=== PATIENT | male | born 1960 | race Caucasian/White ===

== ENCOUNTER 2019-05-12 11:04 | Observation (INO) | payer OTHER ==
[~2019-05-12] VITALS: Ht 182.9 cm; Wt 88.5 kg
[~2019-05-12 11:04] MED LIST: AMBIEN10 MG PO; ASPIRIN EC81 MG PO; ATENOLOL25 MG PO; IBUPROFEN600 MG PO; LISINOPRIL10 MG PO; METHOCARBAMOL500 MG PO; MIGRELIEF CAPL1 EACH PO; PERCOCET 10-321 EACH PO
--- OUTSIDE RECORDS SUMMARY | 2019-05-12 11:06 | XMS ---
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 Krista has no Care Guidelines for this patient. Vic VISIT COUNT (12 MO.) 1 [address] [facility] TOTAL 1 NOTE: Visits indicate total known visits. ED/UCC VISIT TRACKING (12 MO.) 05/12/2019 11:04 CT [facility] OR TYPE: Emergency COMPLAINT: - ABDOMINAL PAIN INPATIENT VISIT TRACKING (12 MO.) No inpatient visits to display in this time frame [email or web address]
[2019-05-12] MEDS ORDERED: ASPIRIN325 MG PO (11:21)
[2019-05-12] MEDS ORDERED: FENOFIBRATE160 MG PO (11:23)
[2019-05-12] MEDS ORDERED: LOSARTAN-HCTZ1 EAC2 PO (12:07)
[2019-05-12] MEDS ORDERED: METOPROLOL TAR100 MG PO (12:09)
--- NOTE | 2019-05-12 15:20 | NUR ---
PATIENT TO SURGERY WITH DIEGO DORAN.
--- NOTE | 2019-05-12 16:40 | NUR ---
05/12/19 Enmanuel Enciso PATIENT ARRIVES WITH ORAL AIRWAY IN PLACE, BUT SPIT IT OUT WITHIN 1 MINUTE OF ARRIVAL. SLEEPY AND MOANIG. 1300 MLS LR IN OR WITH 25MLS EBL.
--- NOTE | 2019-05-12 17:17 | NUR ---
PT TO FLOOR FROM PACU AT 1710, RECIEVED BEDSIDE REPORT FROM MO, RN AND RULA RN. PT ALERT, ORIENTED X 3. HAS 3 SMALL SITES TO ABDOMEN COVERED WITH GAUZE AND TAPE, ALL 3 C/D/I. PT DENIED NAUSEA. RATED PAIN AFTER MOVING FROM STRETCHER TO BED 7/10 TO ABDOMEN. PT ALSO REPORTED HAVING A HEADACHE. REPORTED DRINKING A 32 OUNCE MOUNTAIN DEW DAILY, PROVIDED PT WITH A CAFINATED POP.
--- NOTE | 2019-05-12 17:29 | NUR ---
PT C/O 06/09 ABDOMINAL PAIN, DESCRIBED AN ACHE. GAVE DILAUDID 1 MG IV PRN. PROVIDED PT WITH JELLO, PT DENIED WANTING ANYTHING ELSE CLEAR LIQUIDS AT THIS TIME.
--- NOTE | 2019-05-12 18:32 | NUR ---
PT IN BED, RATES ABDOMINAL PAIN 4/10, STATES THIS IS A TOLERABLE LEVEL OF PAIN. RIGHT UPPER QUADRANT DRESSING HAS SHADOWING NOTED TO DRESSING, DOES UMBILICAL DRESSING. ENCOURAGED PT TO USE URINAL. PT DENIED NEEDS AT THIS TIME. PERSONAL SUPPLIES AND CALL LIGHT IN REACH.
--- NOTE | 2019-05-12 19:10 | NUR ---
PT RATED PAIN 4/10, DENIED NEEDS. PERSONAL SUPPLIES AND CALL LIGHT IN REACH.
--- NOTE | 2019-05-12 19:36 | NUR ---
BEDSIDE REPORT RECEIVED FROM DIEGO JACK. PT AWAKE RESTING IN BED. SPO2 97% ON RA. PT RATES PAIN 4-4.5/10 IN RIGHT UPPER ABD. LAP SITES CDI, SMALL AMT SHADOWING NOTED. IVF INFUSING WNL. CALL LIGHT IN REACH.
--- NOTE | 2019-05-12 20:40 | NUR ---
POST OP VITAL SIGNS COMPLETE, STABLE. ASSESSMENT COMPLETE. PT RATES PAIN 5.75/10 IN RUQ. PRN PO PAIN MEDICATION ADMINISTERED. BOWEL TONES ACTIVE X 4, ABD SOFT, TENDER W PALPATION IN RUQ. IVF INFUSING WNL ORDERED. SCDS ON. CALL LIGHT IN REACH. PT REQUESTING SLEEP MEDICATION, STATES UNABLE TO SLEEP WITHOUT IT. PHONED, MESSAGE LEFT.
--- NOTE | 2019-05-12 21:01 | NUR ---
ROUNDED CHARGE. PATIENT IS RESTING IN BED. PRIMARY RN IS IN THE ROOM. PATIENT DENIES ANY COMMENTS, QUESITONS OR CONCERNS. NO NEEDS NOTED. CALL LIGHT IN REACH.
--- NOTE | 2019-05-12 21:30 | NUR ---
RECEIVED TELEPHONE ORDER PER DR GAXIOLA. VERIFIED TELEPHONE ORDER USING THE REDBACK METHOD.
--- NOTE | 2019-05-12 21:37 | NUR ---
IN PT ROOM FOR MEDICTION ADMINISTRATION, PT REQUESTING SLEEPING MEDICATION A LITTLE LATER. URINAL EMPTIED. IVF INFUSING WNL. CALL LIGHT IN REACH.
--- NOTE | 2019-05-12 22:31 | NUR ---
IN PT ROOM FOR SCHEDULED SLEEP MEDICATION. PT RESTING IN BED, RATES PAIN 5/10, STATES "JUST A LITTLE THROB NOW". CALL LIGHT AND PERSONAL SUPPLIES IN REACH. SCDS ON. IVF INFUSING ORDERED.
--- NOTE | 2019-05-12 23:50 | NUR ---
CHECKED ON PT, APPEARS TO BE SLEEPING. EYES CLOSED. BREATHING NON-LABORED. RR 18. LIGHTS OFF IN ROOM.
--- NOTE | 2019-05-13 02:30 | NUR ---
CHECKED ON PT, RESTING IN BED WITH EYES CLOSED, APPEARS TO BE SLEEPING. BREATHING EQUAL AND NON-LABORED. LIGHTS OFF IN ROOM. IVF INFUSING. SCDS ON.
--- NOTE | 2019-05-13 04:35 | NUR ---
IV PUMP BEEPING, NEW BAG IVF INFUSING WNL. ASSESSMENT COMPLETE. PT RATES PAIN 5/10 IN RLQ, PRN PAIN MEDICATION ADMINISTERED ORDERED. BOWEL TONES ACTIVE X 4. PT REPORTS FLATUS. ABD SOFT. DRESSINGS CDI WITH SHADOWING ON GAUZE. JELLO PROVIDED. PT DENIES NAUSEA. CALL LIGHT IN REACH.
--- NOTE | 2019-05-13 05:59 | NUR ---
PT TOLERATING CLEAR LIQUID DIET, NO NAUSEA. BOWEL TONES ACTIVE X 4, ABD SOFT, TENDER W PALPATION. SHADOWING ON GAUZE AT LAP SITES X 3 UNCHANGED THROUGHOUT SHIFT. SCDS IN PLACE. IVF INFUSING WNL ORDERED. PAIN WELL CONTROLLED W PO NORCO PRN. PT NOT OUT OF BED AT THIS TIME, RESTED IN BED THROUGHOUT SHIFT. SPO2 WNL ON RA.
--- NOTE | 2019-05-13 06:33 | OR ---
[facility] [address], [place] [address] Signed DATE OF OPERATION: 05/12/2019 SURGEON: Edgardo Gaxioal MD PREOPERATIVE DIAGNOSIS: Acute suppurative appendicitis. POSTOPERATIVE DIAGNOSIS: Acute suppurative appendicitis. PROCEDURE PERFORMED: Laparoscopic appendectomy. ESTIMATED BLOOD LOSS: Minimal. INDICATIONS: Bob is a 59-year-old gentleman, who presented with four days of lower abdominal pain. It seemed to localized to the right lower quadrant. He came to emergency room for evaluation. He was tender in the right lower quadrant with an elevated white blood cell count. CT scan confirmed a thickened inflamed appendix with periappendiceal inflammation. I have been asked to see him in the emergency room. He received his IV fluid in his Rocephin and Flagyl. I spoke with Bob and his in detail. We reviewed the above findings. We reviewed the location and function of the appendix. We discussed laparoscopic versus open appendectomy. He understands expected intraop and postop course. There is risk of surgery including, but not limited to bleeding, infection, scarring, change in contour of the skin, damage to bowel, appendiceal stump leak, postoperative intraabdominal abscess, incisional hernias and other unforeseen comorbidities. He had expressed understanding and wished to proceed. DESCRIPTION OF PROCEDURE: Bob was taken into our operating room and placed in a supine position under general endotracheal tube anesthesia. He was already on his preoperative antibiotics along with subcutaneous heparin. SCDs were utilized. A Mendieta catheter was inserted with return of clear yellow urine. He was then prepped and draped in the usual sterile fashion. All trocars were placed in usual positions under direct visualization of camera without difficulty. The appendix was grasped and elevated into the right lower quadrant. The base of the appendix was cleared off and divided from the cecum with the help of a linear stapler. He had just a small arterial bleeding there from the mesoappendix near the base of the cecum. He did not respond to the cautery, so we used our laparoscopic Electronically Signed By: EDGARDO GAXIOLA MD 05/13/19 0633 PATIENT NAME: BOB SPIVEYN OPERATIVE REPORT DATE OF : 56 REPORT #: [id number] PHYSICIAN: EDGARDO GAXIOLA MD PCP: KAREN FAIRBANKS MD REPORT IS CONFIDENTIAL AND NOT TO BE RELEASED WITHOUT AUTHORIZATION [facility] [address], [place] [address] Signed needle drivers and passed 0 silk stitch underneath and tied that down with excellent hemostasis. The mesoappendix was then divided with two vascular loads on the linear stapler. There was a little arterial bleeding on the staple line, so it did respond quite nicely to cautery. The area was irrigated and suctioned out until clear. We washed the area for several minutes and all hemostasis was excellent. After this, the appendix was placed into an EndoCatch bag and taken out through the right subcostal trocar site. We used our laparoscopic suturing device to pass 0 Vicryl suture on either side of the fascia of the subxiphoid trocar site. This was tied down to close this fascia primarily. After this, all the gas was allowed to escape and the remaining trocars were removed. We used interrupted simple and zjijry-um-rylov 0 Vicryl sutures to close the fascia of the supraumbilical trocar site. We then injected local anesthetic into all three trocar sites. Each trocar site was irrigated and suctioned out until clear. The skin and dermis were closed with interrupted 3-0 subcuticular Monocryl sutures. Dry gauze and tape were applied to all incisions. The Mendieta catheter was removed without difficulty. Bob was then awakened from his anesthesia, extubated in the OR, and taken to recovery room in stable condition. Edgardo Gaxiola MD ALB/MODL /[id number] cc: MD Edgardo Shaikh MD Copies: KAREN FAIRBANKS MD, ANDREW L MD ~ Electronically Signed By: EDGARDO GAXIOLA MD 05/13/19 0633 PATIENT NAME: BOB SPIVEY CARLOS OPERATIVE REPORT DATE OF : 56 REPORT #: [id number] PHYSICIAN: EDGARDO GAXIOLA MD PCP: KAREN FAIRBANKS MD REPORT IS CONFIDENTIAL AND NOT TO BE RELEASED WITHOUT AUTHORIZATION
--- NOTE | 2019-05-13 06:33 | CONS ---
[facility] [address] [place], [place] [address] Signed DATE OF CONSULTATION: 05/12/2019 CHIEF COMPLAINT: Right lower quadrant abdominal pain. HISTORY OF PRESENT ILLNESS: Bob is a 59-year-old gentleman, who I know previously having been in the office. He has had four days now of lower abdominal pain. It seems to be worse on the right than on the left. He went to his primary care provider. He thought he might have the flu. There was concern for appendicitis, so he was sent as an outpatient to our radiology department. CT scan confirmed a thickened inflamed appendix. He was asked to go down the emergency room for evaluation. In the emergency room, he is tender in the right lower quadrant with elevated white blood cell count. He has been given IV fluids, some pain control and his Rocephin and Flagyl. I was asked to see him as a general surgeon on-call. PAST MEDICAL HISTORY: Prostate cancer, hypertension, and migraine headaches. PAST SURGICAL HISTORY: Brachytherapy and tonsillectomy. SOCIAL HISTORY: He does not smoke or drink. He is . He is retired from the [employer]. They have no children. He prefers the [facility]. Dr. Karen Toribio is primary care provider. FAMILY HISTORY: Dad of an [place] at age 59. Mom in a motor vehicle crash. REVIEW OF SYSTEMS: He had 10 systems reviewed and really nothing new to add. ALLERGIES: He said marijuana makes him vomit. MEDICATIONS: Ambien, aspirin, fenofibrate, losartan/hydrochlorothiazide, and metoprolol. PHYSICAL EXAMINATION: VITAL SIGNS: Blood pressure 119/77, heart rate 56, respiratory rate 14, temperature is 98.2. He is 99% on room air. He is 6 feet tall at 87 kg. GENERAL: Bob is a 59-year-old gentleman, who is lying supine semi-recumbent in his Electronically Signed By: EDGARDO GAXIOLA MD 05/13/19 0633 PATIENT NAME: BOB SPIVEY CARLOS CONSULTATION DATE OF : 56 REPORT #: [id number] PHYSICIAN: EDGARDO GAXIOLA MD PCP: KAREN TORIBIO MD REPORT IS CONFIDENTIAL AND NOT TO BE RELEASED WITHOUT AUTHORIZATION [facility] [address] [place] [id number] Signed ER bed. His is at the bedside. LUNGS: Clear to auscultation bilaterally. HEART: Regular rate and rhythm. ABDOMEN: Soft and flat, but he is tender in the right lower quadrant. LABORATORY DATA: White blood count 13, neutrophils 71, BUN 19, creatinine 1.36, potassium 3.4. Liver function tests unremarkable. Albumin is 4.2. RADIOGRAPHIC STUDIES: CT scan of abdomen and pelvis is reviewed and he clearly has a very thickened inflamed appendix with periappendiceal inflammation. He looks like he has left inguinal hernia as well. ASSESSMENT AND PLAN: Bob is a 59-year-old gentleman, who presents with acute appendicitis. I have reviewed the above findings with Bob and his . We have discussed laparoscopic versus open appendectomy. We have also reviewed the potential risks including, but not limited to bleeding, infection, scarring, change in contour of the skin, damage to bowel, appendiceal stump leak, postoperative intraabdominal abscess, incisional hernias, and other unforeseen comorbidities. At this point, the OR is full. We are going to have to wait a few hours to have a room. We are going to admit him to one of our medical rooms and we will continue on IV fluids, antibiotics, and pain control. They have expressed understanding and agreed above plan. Edgardo Gaxiola MD ALB/MODL /[id number] cc: MD Edgardo Shaikh MD Copies: KAREN TORIBIO MD Electronically Signed By: EDGARDO GAXIOLA MD 05/13/19 0633 PATIENT NAME: BOB SPIVEY CARLOS CONSULTATION DATE OF : 56 REPORT #: [id number] PHYSICIAN: EDGARDO GAXIOLA MD PCP: KAREN TORIBIO MD REPORT IS CONFIDENTIAL AND NOT TO BE RELEASED WITHOUT AUTHORIZATION [facility] [address] [place], [place] [address] Signed EDGARDO GAXIOLA MD ~ Electronically Signed By: EDGARDO GAXIOLA MD 05/13/19 0633 PATIENT NAME: BOB SPIVEYN CONSULTATION DATE OF : 56 REPORT #: [id number] PHYSICIAN: EDGARDO GAXIOLA MD PCP: KAREN TORIBIO MD REPORT IS CONFIDENTIAL AND NOT TO BE RELEASED WITHOUT AUTHORIZATION
--- NOTE | 2019-05-13 07:05 | NUR ---
REPORT RECEIVED FROM MAY CORTEZ. PT SITTING UP IN BED REPORTS PAIN OF 6/10 TO SURGICAL SITES AND STATES "NORCO DOESN'T REALLY WORK FOR ME, OXYCODONE SEEMS TO WORK BETTER FOR ME" DR GAXIOLA NOTIFIED OF PT'S REPORTED PAIN LEVEL AND THAT PT REQUESTS OXYCODONE INSTEAD OF NORCO. CALL LIGHT AND H2O IN REACH. PT DENIES FURTHER NEEDS/COCNERNS. LAP SITES WELL APPROXIMATED AND CLINICAL STAFF ANESTHESIOLOGIST; PT REPORTS MD REMOVED DSGS THIS MORNING.
--- NOTE | 2019-05-13 07:30 | NUR ---
PATIENT RESTING IN BED. IV WRAPPED. SETS UP BATHROOM FOR SHOWER. CALL LIGHT WITHIN REACH. NO OTHER NEEDS AT THIS TIME
--- NOTE | 2019-05-13 07:57 | EKG ---
[facility] [address] [facility] [place] [address] Signed Sinus bradycardia Nonspecific ST and T wave abnormality Prolonged QT Abnormal ECG No previous ECGs available Confirmed by GONZALO LOO MD ([id number]) on 05/13/2019 7:57:27 AM Electronically Signed By: GONZALO LOO MD 05/13/19 0757 PATIENT NAME: ARJUN SPIVEY Electrocardiogram DATE OF : 56 PHYSICIAN: GONZALO LOO MD REPORT #: [id number] REPORT IS CONFIDENTIAL AND NOT TO BE RELEASED WITHOUT AUTHORIZATION
--- NOTE | 2019-05-13 08:33 | NUR ---
PT RESTING SUPINE IN BED STATES PAIN IS TOLERABLE AT THIS TIME, WATCHING TV. CALL LIGHT AND H20 IN REACH. IV K+ INFUSING - SEE EMAR. NO NEEDS/CONCERNS VOICED.
--- NOTE | 2019-05-13 10:08 | NUR ---
PATIENT RESTING IN BED. IN ROOM. VITAL SIGNS AND I&O DONE. PATIENT COMPLAINS ABOUT PAIN. RN NOTIFIED. CALL LIGHT WITHIN REACH. NO OTHER NEEDS AT THIS TIME
--- NOTE | 2019-05-13 10:30 | NUR ---
PT ASSISTED UP TO RESTROOM, AMBULATES WITH SLOW BUT STEADY GAIT AND DENIES DIZZINESS. PT STATES PAIN IS TOLERABLE. PT BACK TO BED, PT STATES PAIN IS TOLERABLE AND DENIES NAUSEA OR SOB. PT WATCHING TV. CALL LIGHT AND H20 IN REACH.
--- NOTE | 2019-05-13 10:40 | NUR ---
MED REC COMPLETE
--- NOTE | 2019-05-13 10:55 | NUR ---
PT SITTING ON SIDE OF BED ALERT, ORIENTED AND SUPPORTED BY HIS AT . PT STATED HE WAS DOING WELL, HIS THANKED ME FOR COMING BY. EXTENDED A BLESSING. WILL FOLLOW NEEDED
--- NOTE | 2019-05-13 13:03 | NUR ---
PT SITTING UP EATING LUNCH, I/OS DOCUMENTED ON WHITE BOARD. SCD'S IN PLACE. PT REPORTS INCREASED PAIN TO ABDOMEN, PRN PO OPIOD ADMINISTERED PER PT REQUEST. CALL LIGHT AND H2O IN REACH. PT AGREES TO USE CALL LIGHT ONCE HE FEELS READY TO AMBULATE.
--- NOTE | 2019-05-13 13:33 | NUR ---
PATIENT SITTING UP IN BED. AND VISITOR IN ROOM. VITAL SIGNS AND I&O DONE. CALL LIGHT WITHIN REACH. NO OTHER NEEDS AT THIS TIME
--- NOTE | 2019-05-13 14:35 | NUR ---
SPOKE WITH STAFF AND THERE ARE NO KNOWN CM NEEDS AT THIS TIME. PLAN IS TO DISCHARGE WITH FAMILY. THEY WILL PLACE CONSULT IF NEEDS ARISE.
--- NOTE | 2019-05-13 16:08 | NUR ---
PT REPORTS INCREASED PAIN WITH MOVEMENT. PT STATES "I FEEL LIKE I JUST HAVEN'T HAD A GOOD HANDLE ON THIS PAIN SINCE I HAD THE SURGERY". PT EDUCATED ON USIGN CALL LIGHT ANY TIME HE FEELS HIS PAIN IS RAISING SO THAT WE CAN ENSURE THAT WE KEEP IT AT A LEVEL THAT IS TOLERABLE FOR HIM. PT VERBALIZED UNDERSTANDING. CALL LIGHT AND H20 IN REACH[address] GAXIOLA NOTIFIED OF PT'S REPORTED INCREASE IN PAIN AND NEW ORDER RECEIVED FOR 10/325MG PERCOCET 1-2 TABS PRN PAIN Q4HRS.
--- NOTE | 2019-05-13 16:23 | NUR ---
PT RESTING SUPINE IN BED, KEN RN ATTEMPTING NEW IV START PT'S IV TO RFA WAS FOUND TO BE LEAKING. NO REDNESS OR SWELLING NOTED TO IV SITE. CALL LIGHT AND H20 IN REACH. FAMILY AT BEDSIDE. NO NEEDS/CONCERNS VOICED AT THIS TIME.
--- NOTE | 2019-05-13 19:20 | NUR ---
SHIFT REPORT RECEIVED FROM DAYSHIFT DIEGO GAMBOA AT BEDSIDE. PT AWAKE AND WATCHING TELEVISION. PT APPEARS COMFORTABLE, RATES PAIN "TOLERABLE". DENIES NEEDS AT THIS TIME, SCD'S IN PLACE. CALL LIGHT IN REACH.
--- NOTE | 2019-05-13 21:00 | NUR ---
VS COLLECTED. PT'S HR IN MID-UPPER 40'S FROM VS CHART. APICAL HR TAKEN BY THIS RN, RESULT OF 48. PT AYMPTOMATIC, DENIES CHEST PAIN OR DIZZINESS. BP STABLE, RESULT OF 148/85, MAP 98. DR GAXIOLA MADE AWARE, VERBAL ORDER READ BACK TO HOLD SCHEDULED METOPROLOL.
--- NOTE | 2019-05-13 22:30 | NUR ---
ASSESSMENT COMPLETE, SCHEDULED MEDICATION ADMINISTERED AT THIS TIME PER PT REQUEST. SEE EMAR FOR MED ADMINISTRATION, SCHEDULED METOPROLOL HELD PER MD. SEE PREVIOUS NOTE FOR DETAILS. PT A/OX4, DENIES PAIN. BOWEL TONES ACTIVE, DENIES NAUSEA. LAP SITES X3 NOTED, OPEN TO AIR AND INTACT. NO DRAINAGE OR SHADOWING NOTED. PT DENIES ADDITIONAL NEEDS, CALL LIGHT IN REACH.
--- NOTE | 2019-05-14 00:36 | NUR ---
PT RESTING IN BED, EYES CLOSED, RR WNL. NO DISTRESS NOTED, CALL LIGHT IN REACH.
--- NOTE | 2019-05-14 03:23 | NUR ---
ASSESSMENT COMPLETE, NO NEW CONCERNS. PT RECENTLY UP FROM BATHROOM TO VOID, 550 MLS YELLOW OUTPUT NOTED. NO NEW CONCERNS AT THIS TIME, LUNG SOUNDS CLEAR, PT DENIES SOB OR DYSPNEA. LAP SITES X3 OPEN TO AIR, WELL APPROXIMATED AND DRY. NO DRAINAGE OR SHADOWING NOTED. BOWEL TONES ACTIVE, PT DENIES NAUSEA. NO FURTHER NEEDS AT THIS TIME, CALL LIGHT IN REACH.
--- NOTE | 2019-05-14 05:14 | NUR ---
PT HAD UNEVENTFUL NIGHT, SLEPT FOR MOST OF SHIFT. VSS, 2100 SCHEDULED METOPROLOL HELD FOR 48HR, MD AWARE. PT ASYMPTOMATIC. AMBULATES INDEPENDENTLY, USES CALL LIGHT WHEN NEEDED. FULL LIQUID DIET, TOLERATING WELL, NO NAUSEA. VOIDING QS, NO BM THIS SHIFT. NO IV ACCESS. LAP SITES X3 OPEN TO AIR, DRY, WELL APPROXIMATED. SCHEDULED DISCHARGE TODAY.
--- NOTE | 2019-05-14 06:06 | NUR ---
VITALS AND I&OS DONE AND CHARTED. EMPTIED GARBAGES. BEDSIDE TABLE AND CALL LIGHT IN REACH. PT NEEDS NOTHING MORE AT THIS TIME.
--- NOTE | 2019-05-14 07:10 | NUR ---
REPORT RECEIVED PARRIS YOUNG RN. PT RESTING IN SEMI FOWLERS POSITION IN BED, NO NEEDS/CONCERNS VOICED. CALL LIGHT AND H2O IN REACH.
--- NOTE | 2019-05-14 07:52 | NUR ---
PATIENT RESTING IN BED. CALL LIGHT WITHIN REACH. NO OTHER NEEDS AT THIS TIME
--- NOTE | 2019-05-14 08:51 | NUR ---
PATIENT RESTING IN BED. IN ROOM. VITAL SIGNS AND I&O DONE. CALL LIGHT WITHIN REACH. NO OTHER NEEDS AT THIS TIME
--- NOTE | 2019-05-14 09:21 | NUR ---
PT RESTING SUPINE IN BED REPORTS INCREASED PAIN TO ABDOMEN, PT STATES HE IS PASSING GAS. PRN PO OPIODS ADMINISTERED PER PT REQUEST ALLONG WITH AM MEDS -SEE EMAR. VSS. ASSESSMENT COMPLETED. PT DENIES FURTHER NEEDS/CONCERNS. CALL LIGHT AND H2O IN REACH.
--- NOTE | 2019-05-14 11:35 | NUR ---
PT RESTING SUPINE IN BED WATCHING TV, PT VOICES EAGERNESS TO DISCHARGE AND WAS ASSURED THAT DR GAXIOLA WILL BE IN TODAY TO DISCUSS ANY POSSIBLE DISCHARGE PLANS AT THAT TIME. FRESH ICE WATER IN REACH AND PT DENIES FURTHER NEEDS/CONCERNS. FAMILY AT BEDSIDE.
--- NOTE | 2019-05-14 12:17 | NUR ---
PT RECOVERING FROM LAP-APPY. HE HOPES TO BE DC'D TODAY. HIS SAID SHE HOPES SO TOO.IT APPARENTLY WAS HARD FOR HER TO BE AT HOME WITHOUT HIM. I EXTENDED A BLESSING AND VOICED A PRAYER FOR BOTH. WILL FOLLOW NEEDED
--- NOTE | 2019-05-14 12:26 | NUR ---
MD IN TO DISCUSS DISCHARGE PLAN WITH PATIENT. ALL QUESTIONS ANSWERED AND PT VOICED EAGERNESS TO DISCHARGE SOON. PT EDUCATED THAT IT WILL TAKE SOME TIME FOR DISCHARGE PROCESS TO BE COMPLETED AND VERBALIZED UNDERSTANDING. FAMILY AT BEDSIDE. CALL LIGHT AND H2O IN REACH.
[2019-05-14] MEDS ORDERED: PAIN & FEVER325 MG PO (13:07)
[2019-05-14] MEDS ORDERED: ADVIL200 MG PO (13:08)
[2019-05-14] MEDS ORDERED: PERCOCET 10-321 EACH PO (13:09)
--- NOTE | 2019-05-14 13:14 | NUR ---
PATIENT SITTING UP IN CHAIR. IN ROOM. VITAL SIGNS AND I&O DONE. CALL LIGHT WITHIN REACH. NO OTHER NEEDS AT THIS TIME
--- NOTE | 2019-05-15 09:02 | DS ---
[facility] [address] [place], [place] [address] Signed ADMISSION DATE: 05/12/2019 DISCHARGE DATE: 05/14/2019 FINAL DIAGNOSIS: Acute suppurative appendicitis. PROCEDURE: Laparoscopic appendectomy. HISTORY OF PRESENT ILLNESS: Bob is a 59-year-old gentleman, who I have known for a long time along with his . He told me he had four days of lower abdominal pain. It seemed to be localized in the right lower quadrant. He had been to his primary care provider. He was sent directly for a CT scan of abdomen and pelvis. It came back with appendicitis and he was sent over to the emergency room. In the emergency room, of course, he was tender in the right lower quadrant with an elevated white count [id number]. I was therefore asked to see him as a general surgeon on-call. HOSPITAL COURSE: Bob was admitted as above and given IV fluids and antibiotics. We took him to surgery later that day for laparoscopic appendectomy for his acute suppurative appendicitis. His intraoperative and postoperative course had been uncomplicated. First, the hydrocodone does not seem to work, so we suture removed oxycodone that did much better. He is now doing quite well. He is tolerating his diet. He has had flatus. He is ambulating and his incisions are all healing nicely. His abdominal exam is benign. DISCHARGE PLANS AND MEDICATIONS: Bob will be discharged home with a prescription for Percocet 10/325 1-2 tablets p.o. q.4-6 hours p.r.n. pain. We will dispense 20 tablets with no refills. He can use Tylenol, ibuprofen or Aleve for riok-kf-cmpmpmgu postoperative pain. We are going to resume all his chronic medications. He can resume his aspirin in 1 week. He will follow a regular diet at home. He can perform his activities of daily living including walking up and down stairs and showering bathing as usual. He should not do any heavy pushing, pulling, lifting over about [address] on narcotics. I will have him back in the office in a week or so for followup. He and his have expressed understanding and agreed the above plan. Electronically Signed By: EDGARDO GAXIOLA MD 05/15/19 0902 PATIENT NAME: BOB SPIVEY CARLOS DISCHARGE SUMMARY DATE OF : 56 REPORT #: [id number] PHYSICIAN: EDGARDO GAXIOLA MD PCP: KAREN FAIRBANKS MD REPORT IS CONFIDENTIAL AND NOT TO BE RELEASED WITHOUT AUTHORIZATION [address] [address] Signed Edgardo Gaxiola MD ALB/MODL /[id number] cc: MD Karen Ge MD Copies: EDGARDO GAXIOLA MD, RUSSELL BARR MD ~ Electronically Signed By: EDGARDO GAXIOLA MD 05/15/19 0902 PATIENT NAME: BOB SPIVEY DISCHARGE SUMMARY DATE OF : 56 REPORT #: [id number] PHYSICIAN: EDGARDO GAXIOLA MD PCP: KAREN FAIRBANKS MD REPORT IS CONFIDENTIAL AND NOT TO BE RELEASED WITHOUT AUTHORIZATION
== END 2019-05-14 15:45 | disposition home or self-care (01) ==
LOC: ED 11:04 → MS 11:05
PROVIDERS: ADMIT Colon & Rectal Surgery
PROC: 0DTJ4ZZ Resection of Appendix, Percutaneous Endoscopic Approach (ICD-10-PCS; principal; 2019-05-12 14:30)
DX: K35.33 Acute appendicitis with perforation, localized peritonitis, and gangrene, with abscess (principal); I10 Essential (primary) hypertension; G43.909 Migraine, unspecified, not intractable, without status migrainosus; Z85.46 Personal history of malignant neoplasm of prostate; Z79.82 Long term (current) use of aspirin; Z79.899 Other long term (current) drug therapy
CPT/HCPCS: 00840; 36415; 80048; 80053; 81001; 83690; 85025; 93005; 93010; 94760; 96361; 96365; 96372; 96375; 99284-25; G0378; J0330; J0360; J0696; J1100; J1170; J1644; J2270; J2405; J2704; J3010; J3480; J7030; J7060; J7120

== ENCOUNTER 2021-08-01 14:53 | Emergency (ER) | payer OTHER ==
[~2021-08-01] VITALS: Ht 182.9 cm; Wt 88.5 kg
[~2021-08-01 14:53] MED LIST changes: +ADVIL200 MG PO; +ASPIRIN325 MG PO; +FENOFIBRATE160 MG PO; +LOSARTAN-HCTZ1 EAC2 PO; +METOPROLOL TAR100 MG PO; +PAIN & FEVER325 MG PO
--- OUTSIDE RECORDS SUMMARY | 2021-08-01 14:56 | XMS ---
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 EUnique VISIT COUNT (12 MO.) [address] [facility] TOTAL 1 NOTE: Visits indicate total known visits. ED/UCC VISIT TRACKING (12 MO.) 08/01/2021 14:54 [facility] [place] TYPE: Emergency COMPLAINT: - R WRIST LACERATION/INJURY INPATIENT VISIT TRACKING (12 MO.) No inpatient visits to display in this time frame [email or web address]
== END 2021-08-01 17:20 | disposition home or self-care (01) ==
LOC: ED 14:53
DX: S61.511A Laceration without foreign body of right wrist, initial encounter (principal); W45.8XXA Other foreign body or object entering through skin, initial encounter; I10 Essential (primary) hypertension; G43.909 Migraine, unspecified, not intractable, without status migrainosus; Z85.46 Personal history of malignant neoplasm of prostate; Z88.8 Allergy status to other drugs, medicaments and biological substances; Z79.899 Other long term (current) drug therapy; Z79.82 Long term (current) use of aspirin
CPT/HCPCS: 12001; 73110; 90715; 99283-25

== ENCOUNTER 2024-05-12 08:50 | Day surgery (SDC) | payer MEDICARE ==
[~2024-05-12] VITALS: Ht 182.9 cm; Wt 91.0 kg
[~2024-05-12 08:50] MED LIST changes: +IBLOOD GLUCOSE TEST STRIP 1 EA TEST VI PRN; +LACTATED RINGER'S 1,000 ML IV SCH; +LIDOCAINE HCL 1% 5 ML SDV INJ ONE
[2024-05-12 09:31] VITALS: BP 118/75
[2024-05-12] MEDS ORDERED: propofoL 200 MG/20 ML VIAL ONE (10:27)
[2024-05-12] MEDS ORDERED: LIDOCAINE HCL 2% 5 ML SDV ONE (10:27)
--- NOTE | 2024-05-12 11:04 | NUR ---
05/12/24 1104 Anuradha Fuller 1057-PATIENT ARRIVED TO PACU ON 6L MASK RR EVEN 99% PATIENT NONAROUSABLE SINUS BRADYCARDIA HR UPPER 40'S. ABDOMEN SOFT. IVF INFUSING 1103-PATIENT AROUSING TO VERBAL STIMULI MOVING UPPER EXTREMITIES. HOB ELEVATED ORIENTED TO PACU. PLACED ON RA 100% RR EVEN. PATIENT DROWSY. DENIES PAIN OR NAUSEA.
[2024-05-12 11:31] VITALS: BP 123/81
--- NOTE | 2024-05-13 06:22 | OR ---
[facility] [address], [place] [address] Signed DATE OF OPERATION: 05/12/2024 SURGEON: Edgardo Gaxiola MD PREOPERATIVE DIAGNOSES: 1. Internal and external hemorrhoids. 2. Internal anal skin tags. 3. Brother with possible colon cancer in his 40s. POSTOPERATIVE DIAGNOSES: 1. Moderate internal and external hemorrhoids. 2. Minimal internal anal skin tags. PROCEDURE: Colonoscopy without biopsy. ESTIMATED BLOOD LOSS: None. INDICATIONS: Bob is a 64-year-old gentleman, asked to see me for a followup colonoscopy. He had a negative colonoscopy in 2004 at the age of [address] Hector Singleton. I helped him with a colonoscopy in 2010 at the age of 51. He had internal and external hemorrhoids along with some internal anal skin tags. Currently, he has no lower GI complaints. He told me his brother is schizophrenic and often confabulates stories. Therefore, he is not sure if his brother actually had colon cancer in his 40s. He was trying to see me a couple of years ago, but his had from dementia. In the office, I gave him a pamphlet on colonoscopy. He recalls the nature of the test. There is risk including, but not limited to gas bloating, crampy abdominal pain, bleeding, perforation requiring surgery, and missed diagnosis. We also reviewed the need for monitored anesthesia care given his daily need for Ambien to sleep. He had expressed understanding and wished to proceed. DESCRIPTION OF PROCEDURE: Bob was taken into our endoscopy suite and placed in the left lateral decubitus position. He was given monitored anesthesia care with propofol infusion per our nurse farm general manager. A digital rectal exam was performed and he does have moderate external hemorrhoids. He had good sphincter tone. There were no masses. The adult colonoscope was introduced and advanced under direct visualization of the camera. We needed just a little bit of abdominal compression to get it over into the cecum itself. His prep was Electronically Signed By: EDGARDO GAXIOLA MD 05/13/24 0622 PATIENT NAME: BOB SPIVEY CARLOS OPERATIVE REPORT DATE OF : 56 REPORT #: [id number] PHYSICIAN: EDGARDO GAXIOLA MD PCP: KAREN FAIRBANKS MD REPORT IS CONFIDENTIAL AND NOT TO BE RELEASED WITHOUT AUTHORIZATION [facility] [address] [place] [id number] Signed quite good. We could easily see the appendiceal orifice and the ileocecal valve. The scope was then slowly withdrawn. We took several pictures throughout for photodocumentation. We found no pathology throughout the entire colon or rectum. Once in the rectum, the scope was retroflexed, he does have moderate internal hemorrhoid columns. We could see a small single internal anal skin tag. After this, the gas suctioned out and the colonoscope removed. Bob tolerated the procedure quite well. RECOMMENDATIONS: Bob will follow up in 5 years for repeat colonoscopy if indeed his brother had colon cancer. Otherwise, he is to return in 10 years. Edgardo Gaxiola MD ALB/MODL /[id number] cc: MD Edgardo Shaikh MD Copies: KAREN FAIRBANKS MD, ANDREW L MD ~ Electronically Signed By: EDGARDO GAXIOLA MD 05/13/24 0622 PATIENT NAME: BOB SPIVEY CARLOS OPERATIVE REPORT DATE OF : 56 REPORT #: [id number] PHYSICIAN: EDGARDO GAXIOLA MD PCP: KAREN FAIRBANKS MD REPORT IS CONFIDENTIAL AND NOT TO BE RELEASED WITHOUT AUTHORIZATION
== END 2024-05-12 11:35 | disposition home or self-care (01) ==
LOC: DS 08:50
PROVIDERS: ATTEND Colon & Rectal Surgery
PROC: 0DJD8ZZ Inspection of Lower Intestinal Tract, Via Natural or Artificial Opening Endoscopic (ICD-10-PCS; principal; 2024-05-12 09:30)
DX: K64.8 Other hemorrhoids (principal); K64.4 Residual hemorrhoidal skin tags; I10 Essential (primary) hypertension; E78.5 Hyperlipidemia, unspecified; G43.909 Migraine, unspecified, not intractable, without status migrainosus; G62.9 Polyneuropathy, unspecified; Z79.899 Other long term (current) drug therapy; Z80.0 Family history of malignant neoplasm of digestive organs; Z85.46 Personal history of malignant neoplasm of prostate
CPT/HCPCS: 00811; J2001; J2704; J7121